=== PATIENT | female | born 1990 | race Caucasian/White ===

== ENCOUNTER 2022-03-29 18:06 | Emergency (ER) | payer SELFPAY ==
[~2022-03-29] VITALS: Ht 170.2 cm; Wt 92.3 kg
[2022-03-29 18:07] VITALS: BP 132/87
[2022-03-29] MEDS ORDERED: LABE100T5 PO (18:21)
[2022-03-29] MEDS ORDERED: MULTTAB20 PO (18:21)
[2022-03-29] MEDS ORDERED: ECOT81TA5 PO (18:21)
== END 2022-03-29 21:16 | disposition left against medical advice (07) ==
LOC: M ED 18:06
DX: Z53.29 Procedure and treatment not carried out because of patient's decision for other reasons (principal)

== ENCOUNTER 2024-02-19 12:41 | Emergency (ER) | payer OTHER, SELFPAY ==
[~2024-02-19] VITALS: Ht 170.2 cm; Wt 95.4 kg
[~2024-02-19 12:41] MED LIST: ECOT81TA5 PO; LABE100T40 PO; MULTTAB20 PO
[2024-02-19] MEDS ORDERED: IBUP200C25 PO (12:48)
[2024-02-19 13:40] LABS: BASO % 0.3 % (0.0-1.0); EOS # 0.1 10^3/uL (0.0-0.5); HEMATOCRIT 38.6 % (36.0-47.0); HEMOGLOBIN 12.7 g/dl (12.0-15.5); LYMPH # 2.1 10^3/uL (1.5-5.0); LYMPH % 30.1 % (24.0-44.0); MEAN CORPUSCULAR HEMOGLOBIN 29.8 pg (27.0-33.0); MEAN CORPUSCULAR HGB CONC 32.9 g/dl (32.0-36.5); MEAN CORPUSCULAR VOLUME 90.6 fl (80.0-96.0); MONO # 0.3 10^3/uL (0.0-0.8); MONO % 4.6 % (2.0-8.0); NEUTROPHILS # 4.4 10^3/uL (1.5-8.5); NEUTROPHILS % 63.7 % (36.0-66.0); PLATELET COUNT, AUTOMATED 286 10^3/uL (150-450); RED BLOOD COUNT 4.26 10^6/uL (4.00-5.40)
[2024-02-19 15:41] VITALS: BP 138/81; TEMP 97.3; O2SAT 100
== END 2024-02-19 15:43 | disposition home or self-care (01) ==
LOC: M ED 12:41
DX: J00 Acute nasopharyngitis [common cold] (principal)

== ENCOUNTER 2024-08-26 09:14 | Day surgery (SDC) | payer OTHER ==
[~2024-08-26] VITALS: Ht 170.2 cm; Wt 95.8 kg
[~2024-08-26 09:14] MED LIST changes: +IBUP200C25 PO
[2024-08-26] MEDS ORDERED: dexmedeTOMIDine (4MCG/ML)200MCG/50ML BTL (PRECEDEX) As Ordered ONE (09:35)
[2024-08-26] MEDS ORDERED: MIDAZOLAM INJ 2MG/2ML VIAL As Ordered ONE (09:35)
[2024-08-26] MEDS ORDERED: ONDANSETRON 4MG 2ML VIAL As Ordered ONE (09:35)
[2024-08-26] MEDS ORDERED: KETOROLAC 60MG 2ML VIAL As Ordered ONE (09:35)
[2024-08-26] MEDS ORDERED: propofoL 200 MG/20 ML VIAL As Ordered ONE (09:35)
[2024-08-26] MEDS ORDERED: LIDOCAINE 2% 100MG/5ML SDV (FOR ANES.) As Ordered ONE (09:35)
[2024-08-26] MEDS ORDERED: fentaNYL 100 MCG/2 ML INJECTION As Ordered ONE (09:36)
[2024-08-26 09:56] LABS: HEMOGLOBIN 12.8 g/dl (12.0-15.5); MEAN CORPUSCULAR HEMOGLOBIN 29.6 pg (27.0-33.0); MEAN CORPUSCULAR HGB CONC 32.8 g/dl (32.0-36.5); MEAN CORPUSCULAR VOLUME 90.3 fl (80.0-96.0); PLATELET COUNT, AUTOMATED 292 10^3/uL (150-450); RED BLOOD COUNT 4.32 10^6/uL (4.00-5.40); WHITE BLOOD COUNT 6.8 10^3/uL (4.0-10.0)
[2024-08-26] MEDS ORDERED: LR 1,000 ML IV SCH (10:05)
[2024-08-26] MEDS: LIDOCAINE 1% SDV 30ML VIAL As Ordered ONE (11:42)
[2024-08-26] MEDS: LIDOCAINE W/EPINEPHRINE 1% 20ML VIAL As Ordered ONE (12:48)
[2024-08-26] MEDS ORDERED: ACETAMINOPHEN 1000MG 100ML IV BAG As Ordered ONE (12:49)
[2024-08-26] MEDS ORDERED: ePHEDrine SULFATE 25 MG/5 ML(5MG/ML) SYRINGE As Ordered ONE (13:09)
[2024-08-26] MEDS ORDERED: ONDANSETRON 4MG 2ML VIAL IV PRN (13:15)
[2024-08-26] MEDS ORDERED: oxyCODONE 5MG TAB PO PRN (13:15)
[2024-08-26] MEDS ORDERED: fentaNYL 100 MCG/2 ML INJECTION IV PRN (13:15)
[2024-08-26] MEDS: SILVER NITRATE APPLICATOR (1 = QTY 10) As Ordered ONE (13:26)
[2024-08-26 14:40] VITALS: BP 124/72; TEMP 97.4; O2SAT 98
== END 2024-08-26 14:43 | disposition home or self-care (01) ==
LOC: M SDC 09:14
PROVIDERS: ATTEND Student in an Organized Health Care Education/Training Program
DX: N84.0 Polyp of corpus uteri (principal); N87.1 Moderate cervical dysplasia; Z86.73 Personal history of transient ischemic attack (TIA), and cerebral infarction without residual deficits
CPT/HCPCS: 36415; 57522; 58558; 81025; 85027; 86850; 86900; 86901; 88305; 88307; J0131; J1100; J1885; J2250; J2405; J3010

== ENCOUNTER → 2025-01-12 | Outpatient (CLI) | payer OTHER ==
[~2025-01-12] MED LIST changes: +BUSP5TA PO; +D 50CAP2 PO; +LISI2.5T9 PO; +LOSA25TA13 PO
== END ==
LOC: M EKG 11:46
PROVIDERS: ATTEND Anesthesiology
DX: Z01.818 Encounter for other preprocedural examination (principal); I10 Essential (primary) hypertension

== ENCOUNTER 2025-01-19 06:12 | Day surgery (SDC) | payer OTHER ==
[~2025-01-19] VITALS: Ht 170.2 cm; Wt 94.3 kg
[2025-01-19] MEDS ORDERED: ATROPINE SULF 0.4 MG/ML 1ML VIAL As Ordered ONE (06:41)
[2025-01-19] MEDS ORDERED: ACETAMINOPHEN 1000MG/100ML IV BAG As Ordered ONE (06:42)
[2025-01-19] MEDS ORDERED: LR 1,000 ML IV SCH ×2 (06:45→10:25)
[2025-01-19] MEDS ORDERED: fentaNYL 100 MCG/2 ML INJECTION As Ordered ONE (06:52)
[2025-01-19] MEDS ORDERED: MIDAZOLAM INJ 2MG/2ML VIAL As Ordered ONE (06:52)
[2025-01-19] MEDS ORDERED: LIDOCAINE 2% 100MG/5ML SDV (FOR ANES.) As Ordered ONE (06:53)
[2025-01-19] MEDS ORDERED: ONDANSETRON 4MG 2ML VIAL As Ordered ONE (06:53)
[2025-01-19] MEDS ORDERED: SUGAMMADEX SODIUM 500 MG/5 ML VIAL (BRIDION) As Ordered ONE (06:53)
[2025-01-19] MEDS ORDERED: propofoL 200 MG/20 ML VIAL As Ordered ONE (06:53)
[2025-01-19] MEDS ORDERED: ROCURONIUM BROMIDE 50MG/5ML VIAL As Ordered ONE (06:54)
[2025-01-19] MEDS ORDERED: KETOROLAC 30 MG/ML 1ML VIAL As Ordered ONE (06:56)
[2025-01-19] MEDS ORDERED: HYDROmorphone HCL 2MG/ML 1ML VIAL As Ordered ONE (06:57)
[2025-01-19 07:04] LABS: HEMATOCRIT 40.2 % (36.0-47.0); HEMOGLOBIN 13.2 g/dl (12.0-15.5); MEAN CORPUSCULAR HEMOGLOBIN 29.6 pg (27.0-33.0); MEAN CORPUSCULAR HGB CONC 32.8 g/dl (32.0-36.5); MEAN CORPUSCULAR VOLUME 90.1 fl (80.0-96.0); PLATELET COUNT, AUTOMATED 261 10^3/uL (150-450); RED BLOOD COUNT 4.46 10^6/uL (4.00-5.40); WHITE BLOOD COUNT 6.7 10^3/uL (4.0-10.0)
[2025-01-19] MEDS: SCOPOLAMINE 1MG TRANSDERMAL PATCH TOP ONE (07:10)
[2025-01-19] MEDS: GABAPENTIN 300 MG CAP PO ONE (07:11)
[2025-01-19] MEDS: ACETAMINOPHEN 500 MG TAB PO ONE (07:11)
[2025-01-19 07:37] LABS: BLOOD UREA NITROGEN 10 MG/DL (9-23); CALCIUM LEVEL 8.9 MG/DL (8.5-10.1); CARBON DIOXIDE LEVEL 27 MMOL/L (20-31); CHLORIDE LEVEL 107 MMOL/L (98-107); CREATININE FOR GFR 0.76 MG/DL (0.55-1.30); GLOMERULAR FILTRATION RATE > 60.0 (>60); GLUCOSE, FASTING 95 MG/DL (60-100); POTASSIUM SERUM 4.2 MMOL/L (3.5-5.1); SODIUM LEVEL 140 MMOL/L (136-145)
[2025-01-19] MEDS: ceFAZolin SOD 2 GM IV ONCE IV ONE (07:53)
[2025-01-19] MEDS: metroNIDAZOLE 500 MG in IV 1 EA IV ONE (08:00)
[2025-01-19] MEDS ORDERED: ESMOLOL INJ 100MG/10ML VIAL As Ordered ONE (09:37)
[2025-01-19] MEDS ORDERED: LABETALOL 100MG/20ML VIAL As Ordered ONE (09:37)
[2025-01-19] MEDS ORDERED: GLYCOPYRROLATE INJ 0.2 MG/ML 2 ML VIAL As Ordered ONE (09:37)
[2025-01-19] MEDS ORDERED: fentaNYL 100 MCG/2 ML INJECTION IV PRN (10:25)
[2025-01-19] MEDS ORDERED: MEPERIDINE 50 MG/ML 1ML VIAL As Ordered ONE (10:27)
[2025-01-19] MEDS: ONDANSETRON 4MG 2ML VIAL IV PRN (10:31)
[2025-01-19] MEDS: HYDROMORPHONE HCL 0.5 MG/ 0.5 ML SYRINGE IV PRN ×2 (10:39→11:20)
[2025-01-19] MEDS: PROMETHAZINE 25MG/ML 1ML VIAL IV PRN (10:41)
[2025-01-19] MEDS ORDERED: ONDANSETRON 4MG 2ML VIAL IV PRN (10:55)
[2025-01-19] MEDS: KETOROLAC 30 MG/ML 1ML VIAL IV ONE (10:55)
[2025-01-19] MEDS ORDERED: oxyCODONE 5MG TAB PO PRN (10:55)
[2025-01-19] MEDS: oxyCODONE 5MG TAB PO PRN (11:21)
[2025-01-19] MEDS: PROMETHAZINE 25MG/ML 1ML VIAL IV ONE (12:44)
[2025-01-19 13:55] VITALS: BP 140/94; TEMP 97.6; O2SAT 99
== END 2025-01-19 14:10 | disposition home or self-care (01) ==
LOC: M SDC 06:12
PROVIDERS: ATTEND Student in an Organized Health Care Education/Training Program
DX: N87.1 Moderate cervical dysplasia (principal); N92.0 Excessive and frequent menstruation with regular cycle; I10 Essential (primary) hypertension; F41.9 Anxiety disorder, unspecified; Z86.73 Personal history of transient ischemic attack (TIA), and cerebral infarction without residual deficits
CPT/HCPCS: 36415; 58571; 80048; 81025; 85027; 86850; 86900; 86901; 88307; J0461; J0665; J0690; J1100; J1171; J1596; J1805; J1836; J1885; J1920; J2175; J2250; J2405; J2550; J3010

== ENCOUNTER 2025-01-20 19:17 | Emergency (ER) | payer OTHER ==
[~2025-01-20] VITALS: Ht 170.2 cm; Wt 97.3 kg
[2025-01-20] MEDS ORDERED: MORPHINE 4 MG/ML 1ML VIAL IM ONE (21:00)
[2025-01-20] MEDS ORDERED: MORPHINE 4 MG/ML 1ML VIAL IV ONE (21:05)
[2025-01-20] MEDS: ACETAMINOPHEN *IV* 1,000 MG in IV 1 EA IV ONE (21:14)
[2025-01-20] MEDS: SIMETHICONE 80MG CHEW TAB PO ONE (21:30)
[2025-01-20 21:43] LABS: BASO % 0.4 % (0.0-1.0); EOS % 0.4 % (0.0-3.0); HEMATOCRIT 31.3 % (36.0-47.0); LYMPH # 2.8 10^3/uL (1.5-5.0); LYMPH % 32.8 % (24.0-44.0); MEAN CORPUSCULAR HEMOGLOBIN 30.1 pg (27.0-33.0); MEAN CORPUSCULAR HGB CONC 33.5 g/dl (32.0-36.5); MEAN CORPUSCULAR VOLUME 89.7 fl (80.0-96.0); MONO # 0.4 10^3/uL (0.0-0.8); NEUTROPHILS # 5.2 10^3/uL (1.5-8.5); PLATELET COUNT, AUTOMATED 267 10^3/uL (150-450); RED BLOOD COUNT 3.49 10^6/uL (4.00-5.40); WHITE BLOOD COUNT 8.4 10^3/uL (4.0-10.0)
[2025-01-20 21:44] LABS: HEMOGLOBIN 10.5 g/dl (12.0-15.5)
[2025-01-20 21:50] LABS: LIPASE 40 U/L (12-53)
[2025-01-20 21:52] LABS: ALBUMIN 3.4 G/DL (3.2-5.2); ALKALINE PHOSPHATASE 53 U/L (35-104); ALT/SGPT 15 U/L (7.0-40); AST/SGOT 12 U/L (<34); BILIRUBIN,DIRECT < 0.1 MG/DL (<0.4); BILIRUBIN,TOTAL 0.2 MG/DL (0.3-1.2); TOTAL PROTEIN 6.4 G/DL (5.7-8.2)
[2025-01-20] MEDS ORDERED: ISOVUE-370 76% 100ML VIAL As Ordered ONE (21:53)
[2025-01-20] MEDS: METOCLOPRAMIDE INJ 10MG/2ML VIAL IV ONE (23:15)
[2025-01-20 23:16] VITALS: BP 125/82; TEMP 97.3; O2SAT 98
[2025-01-21] MEDS: NS (Normal Saline) 0.9% 1,000 ML IV ONE (00:19)
[2025-01-21] MEDS: KETOROLAC 30 MG/ML 1ML VIAL IV ONE (00:20)
[2025-01-21] MEDS ORDERED: MIRA3350 PO (00:37)
[2025-01-21] MEDS ORDERED: COLA100C5 PO (00:37)
[2025-01-21] MEDS: MAGNESIUM CITRATE 300ML BTL PO ONE (00:40)
== END 2025-01-21 00:47 | disposition home or self-care (01) ==
LOC: M ED 19:17
DX: K59.00 Constipation, unspecified (principal); I10 Essential (primary) hypertension; F41.9 Anxiety disorder, unspecified; Z79.1 Long term (current) use of non-steroidal anti-inflammatories (NSAID); Z79.899 Other long term (current) drug therapy
CPT/HCPCS: 71045; 74177; 80047; 80076; 83690; 85025; 86850; 93005; 96365; 96375; 99284; J0131; J1885; J2765; Q9967